=== PATIENT | male | born 1960 | race Caucasian/White ===

== ENCOUNTER 2025-10-18 12:11 | Outpatient (OUT) | payer OTHER, SELFPAY ==
[2025-10-18 12:41] LABS: Glucose Urine UA NEGATIVE (NEGATIVE)
--- NOTE | 2025-10-18 13:00 | CA_ITS ---
Patient Name: LEROY BATES MR#: [id number] : 1960 Exam Date: 10/18/2025 Ordering Doctor: DR. CESAR TURPIN ECHOCARDIOGRAM REPORT PROCEDURE: CA ECHO DOPPLER COMPLETE INDICATIONS: Coronary artery disease, diabetes mellitus type II, [place], cardiac stents, hypertension COMPARISON: None. DESCRIPTION: COMPLETE ECHOCARDIOGRAM Real-time transthoracic echocardiography with 2D, M-mode, spectral and color flow Doppler performed. QUALITY: Technical quality was good. LEFT VENTRICLE: Normal chamber size. Mild concentric left ventricular hypertrophy. Normal systolic function. Estimated LVEF is 55%. LV EF: Normal left ventricular ejection fraction, (55%). DIASTOLIC: ATRIAL SEPTUM: Not well visualized. LEFT ATRIUM: Mild dilatation. RIGHT ATRIUM: Mild dilatation. RIGHT VENTRICLE: Normal chamber size. Normal systolic function. TRICUSPID VALVE: Normal mobility and thickness. No stenosis with trivial regurgitation. No evidence of pulmonary hypertension. RVSP 33 mmHg MITRAL VALVE: Normal mobility and thickness. No evidence of mitral valve stenosis. There is no mitral annular calcification. Trivial mitral regurgitation. AORTIC VALVE: Normal trileaflet appearance. No visible sclerosis. Normal leaflet mobility. No evidence of aortic valve stenosis. No aortic regurgitation. AORTIC ROOT: Normal diameter and appearance, measuring 3.4 cm. PULMONIC VALVE: Normal thickness and mobility. No stenosis. Trivial regurgitation. PERICARDIUM: No evidence of pericardial effusion. IVC: Not well visualized. PLEURA: CONCLUSION: 1. Mild concentric left ventricular hypertrophy with normal systolic function. LVEF is estimated at 55%. 2. Normal right ventricular size and systolic function. 3. Mild biatrial dilatation. 4. No significant valvular dysfunction. 5. Normal right-sided pressures. Adult Echocardiography Procedure Report Left Ventricle LVEDD (3.7 - 5.6 cm): 4.60 cm LVESD (2.2 - 4.0 cm): 3.63 cm LVIVS thickness (0.6 - 1.2 cm): 1.31 cm LVPW thickness (0.5 - 1.0 cm): 1.11 cm LVOT Max Gradient: 2.61 mm[Hg] LVOT Area (cm2): 0.81 m/s Peak Velocity (LVOT): 0.81 m/s Mean Velocity (LVOT): 0.52 m/s LVOT Diameter 2.02 cm Left Atrium LA Volume Index (2D A2C): 35.20 ml/m2 Left Atrium Systolic Dimension: 4.16 cm Mitral Valve MV E to A Ratio: 0.74 Mitral Valve A-Wave Peak Velocity: 0.97 m/s Mitral Valve E-Wave Peak Velocity: 0.71 m/s Right Ventricle Aorta AO Root Diam: 3.37 cm Aortic Valve AoV Area (Peak Arthur): 2.00 cm2, 2.00 cm2 AoV Area (VTI): 2.13 cm2, 2.13 cm2 Peak Velocity(Antegrade Flow): 1.30 m/s Peak Gradient(Antegrade Flow): 6.71 mm[Hg] Mean Velocity(Antegrade Flow): 0.92 m/s Mean Gradient(Antegrade Flow): 3.75 mm[Hg] Velocity Time Integral: 30.54 cm Tricuspid Valve Peak Velocity (Regurgitant Flow): 2.74 m/s Pulmonic Valve Mean Gradient: 2.05 mm[Hg] Mean Velocity: 0.66 m/s Peak Velocity: 1.02 m/s Peak Gradient: 4.18 mm[Hg] Right Atrium Right Atrium Systolic Pressure: 58.99 ml, 58.99 ml Dictated by: Alexandre Toscano M.D. on 10/18/2025 at 19:03 Approved by: Alexandre Toscano M.D. on 10/18/2025 at 19:06
[2025-10-18 13:18] LABS: Alanine Aminotransferase 53 U/L (16-63); Albumin Globulin Ratio 1.3; Albumin Level 4.0 g/dL (3.4-5.0); Alkaline Phosphatase 70 U/L (46-116); Anion Gap 9.1; Aspartate Amino Transferase 26 U/L (15-37); Blood Urea Nitrogen 11.0 mg/dL (7.0-18.0); Calcium 9.0 mg/dL (8.5-10.1); Carbon Dioxide 30.1 mmol/L (21.0-32.0); Chloride 106 mmol/L (98-107); Estimated GFR (African America >60 (>=60 mL/min/1.73m^2); Estimated GFR (Non-African Ame 59 (>=60 mL/min/1.73m^2); Globulin 3.0 g/dL; Glucose 131 mg/dL (74-106); Potassium 4.2 mmol/L (3.5-5.1); Sodium 141 mmol/L (136-145); Total Protein 7.0 g/dL (6.4-8.2)
== END 2025-10-18 12:12 | disposition home or self-care (01) ==
LOC: CARD 12:11
PROVIDERS: PCP Family Medicine; Visit Provider Chiropractor
DX: I25.10 Atherosclerotic heart disease of native coronary artery without angina pectoris (principal); E11.9 Type 2 diabetes mellitus without complications
CPT/HCPCS: 36415; 80053; 81003; 93306